=== PATIENT | female | born 1980 | race Caucasian/White ===

== ENCOUNTER → 2016-11-29 | Outpatient (CLI) | payer BC ==
[~2016-11-29] MED LIST: ALBU18002; CHOLDRO4 PO; EFF/375 PO; OXYC-57 PO
[2016-11-29 18:21] LABS: BASO % 0.9 %; BASO ABS # 0.07 K/uL (0-0.2); COMPLETE YES; EOS % 10.5 %; HEMATOCRIT 40.7 % (37-47); IG% 0.3 %; LYMPH % 14.6 %; LYMPH ABS # 1.16 K/uL (1.2-3.4); MEAN CELL VOLUME 88.5 fL (80-100); MEAN CORPUSCULAR HEMOGLOBIN 30.7 pg (25-34); MEAN CORPUSCULAR HGB CONC 34.6 g/dl (32-36); MEAN PLATELET VOLUME 9.6 fL (7.4-10.4); MONO % 5.9 %; NEUT % 67.8 %; PLATELET COUNT 239 K/uL (130-400); WHITE BLOOD COUNT 7.94 K/uL (4.8-10.8)
[2016-11-29 18:26] LABS: ALT/SGPT 13 U/L (12-78); AST/SGOT 11 U/L (15-37); BLOOD UREA NITROGEN 9 mg/dl (7-18); BUN/CREATININE RATIO 10.8 (10-20); CALCIUM 8.6 mg/dl (8.5-10.1); CARBON DIOXIDE 25 mmol/L (21-32); CHLORIDE 109 mmol/L (98-107); CREATININE 0.82 mg/dl (0.60-1.20); GLUCOSE 90 mg/dl (70-99); POTASSIUM 3.6 mmol/L (3.5-5.1); SODIUM 141 mmol/L (136-145)
[2016-11-29 18:36] LABS: ALB/GLOB RATIO 1.4 (0.9-2); ALKALINE PHOSPHATASE 50 U/L (45-117); RHEUMATOID FACTOR < 10.0 U/mL (0-15)
[2016-11-29 21:20] LABS: LYME DISEASE AB IGG NEG (NEG); LYME DISEASE AB IGM NEG (NEG)
[2016-12-06 10:17] LABS: ANTI-CENTROMERE AB <1.0 NEG AI (<1.0 NEG); ANTI-SS-A <1.0 NEG AI (<1.0 NEG); ANTI-SS-B <1.0 NEG AI (<1.0 NEG); DNA ds CRITHIDIA NEGATIVE (NEGATIVE); MICROSOMAL AB 3 IU/ML (<9); Sm Antibody <1.0 NEG AI (<1.0 NEG)
== END | disposition home or self-care (01) ==
LOC: C.LABMFLN 13:54
PROVIDERS: ATTEND Physician Assistant
DX: R42 Dizziness and giddiness (principal); R53.82 Chronic fatigue, unspecified; R51 Headache; R06.02 Shortness of breath

== ENCOUNTER → 2016-12-02 | Day surgery (SDC) | payer BC ==
[2016-12-02 12:43] VITALS: BP 113/76; PULSE 71; O2SAT 100
--- NOTE | 2016-12-02 13:01 | History & Physical Bridge Note ---
H&P Re-Evaluation Bridge Note: I have examined the patient, reviewed the History & Physical and in the interval since the performance of the History & Physical I have noted the following changes of clinical significance: No changes noted
--- NOTE | 2016-12-02 15:29 | Procedure Note ---
Procedure Note Date of Service Dec 02, 2016. Procedure Note Procedure performed: Head-up tilt-table test Staff project management consultant: Matthew Moreira MD Indication: The patient is a 36-year-old woman with a history of migraine headaches as well as positional dizziness, lightheadedness and occasional syncope. Procedure detail: The patient was informed the risks benefits and alternatives to the intended procedure. She understood such which proceed. She was placed in the supine position on the tilt table. She was secured into place. It continues monitoring was initiated which included pulse oximetry, intermittent blood pressures and telemetry. Patient was subsequently raise to 70. Symptoms and hemodynamics were monitored. At the conclusion of the test the patient was returned to the supine position. Hemodynamics and symptoms were allowed to return to normal prior to discharge. The patient tolerated procedure well there no immediate complications. Findings: Initial blood pressure was 117/64 with a pulse of 64 With head-up tilting the patient's blood pressure did not change, the pulse shabnam to a maximum of 90 beats per minute. At 21 minutes the patient began to feel dizzy lightheaded and warm. The blood pressure dropped slightly to 90/58 in the pulse slowed to 52 beats per minute. There did appear to be transient syncope. At the time of discharge the patient's blood pressure is 113/62 with a pulse of 63 Impression: Positive head-up tilt-table test Sustained heart rate response with upright tilting consistent with POTS No initial symptoms associated with increase in pulse Syncope associated with a drop in blood pressure most consistent with vasodepressor response No definite cardioinhibitory response
== END | disposition home or self-care (01) ==
LOC: C.CATH 12:08
PROVIDERS: ATTEND Psychiatry & Neurology Neurology
DX: R42 Dizziness and giddiness (principal); M54.12 Radiculopathy, cervical region; F41.8 Other specified anxiety disorders; R53.82 Chronic fatigue, unspecified; F17.200 Nicotine dependence, unspecified, uncomplicated; Z79.899 Other long term (current) drug therapy

== ENCOUNTER → 2017-10-31 | Outpatient (CLI) | payer BC ==
[~2017-10-31] MED LIST changes: -EFF/375 PO; -OXYC-57 PO
--- NOTE | 2017-10-31 15:16 | DIAGNOSTIC IMAGING REPORT ---
CT HEAD WITHOUT CONTRAST (CT) CLINICAL HISTORY: S06.0X9A Concussion HEAD TRAUMA, HEADACHES COMPARISON STUDY: No previous studies for comparison. TECHNIQUE: Axial CT of the brain is performed from the vertex to the skull base. IV contrast was not administered for this examination. A dose lowering technique was utilized adhering to the principles of ALARA. CT DOSE: 690.05 mGycm FINDINGS: No intra or extra-axial mass lesions are visualized. There is no CT evidence of acute cortical infarction. There is no evidence of midline shift. There is no acute hemorrhage. No calvarial fractures are visualized. There is no evidence of pathologic ventricular dilatation. There is no evidence of acute sinusitis IMPRESSION: Normal noncontrast head CT. Electronically signed by: Sadiq Garcia M.D. 10/31/2017 3:15 PM Dictated Date/Time: 10/31/2017 3:12 PM
== END | disposition home or self-care (01) ==
LOC: C.CTS 15:06
PROVIDERS: ATTEND Physician Assistant
DX: S06.0X9A Concussion with loss of consciousness of unspecified duration, initial encounter (principal); X58.XXXA Exposure to other specified factors, initial encounter